=== PATIENT | male | born 1955 | race Caucasian/White ===

== ENCOUNTER 2016-04-14 15:05 | Emergency (ER) | payer MEDICAID | END 2016-04-14 17:42 | disposition home or self-care (01) | LOC: D.ER 15:05 | DX: R51 Headache (principal); I10 Essential (primary) hypertension ==

== ENCOUNTER 2020-06-19 13:12 | Inpatient (IN) | payer MEDICARE ==
[~2020-06-19] VITALS: Ht 175.3 cm; Wt 140.6 kg
--- NOTE | 2020-06-19 13:20 | NUR ---
REPORT FROM EMS TAKEN. EMS STATES PATIENT'S LIVING CONDITIONS SQUALID. PATIENT IS DIRTY, WITH BLACK SUBSTANCE CAKED ON FEET AND TOES. VOMITUS AND URINE SOAKED INTO CLOTHING. CLOTHING REMOVED.
[2020-06-19 13:46] LABS: CALCIUM 9.9 mg/dL (8.5-10.1); CARBON DIOXIDE 26.3 mmol/L (21.0-32.0); CREATININE - SERUM 1.6 mg/dL (0.6-1.3); POTASSIUM - SERUM 4.3 mmol/L (3.5-5.1)
[2020-06-19 13:53] LABS: ALBUMIN 3.3 g/dL (3.4-5.0); BILIRUBIN - TOTAL 0.41 mg/dL (0.2-1.3); PROTEIN - SERUM 7.7 g/dL (6.4-8.2)
--- NOTE | 2020-06-19 13:57 | NUR ---
PATIENT GONE TO CT.
--- NOTE | 2020-06-19 14:05 | NUR ---
BACK TO ROOM .
--- NOTE | 2020-06-19 14:15 | NUR ---
IN AND OUT CATHETER DONE FOR URINE SPECIMEN. 400ML CLEAR YELLOW URINE RETURNED. SPECIMEN TO LAB.
[2020-06-19 14:16] LABS: BASOPHILS 0.3 % (0-2); EOSINOPHILS 1.4 % (0-7); HEMATOCRIT 43.1 % (42.0-54.0); HEMOGLOBIN 13.9 g/dL (13.5-17.5); IMMATURE GRANULOCYTES 0.2 % (0-5); LYMPHOCYTE ABS# 4.22 10x3/uL (1.32-3.57); MCH 28.7 pg (26.0-34.0); MCHC 32.3 g/dL (31.0-37.0); MCV 88.9 fL (80.0-100.0); MEAN PLATELET VOLUME 11.3 fL (7.4-10.4); MONOCYTES 6.2 % (2-11); NEUTROPHIL ABS# 7.17 10x3/uL (1.78-5.38); NEUTROPHILS 57.9 % (40-80); PLATELET COUNT 219 10x3/uL (130-400); RBC 4.85 10x6/uL (4.20-6.10); RDW 14.4 % (11.5-14.5); WBC 12.4 10x3/uL (4.8-10.8)
[2020-06-19 14:32] LABS: UDS - AMPHET NEGATIVE QUAL (NEGATIVE); UDS - BARB NEGATIVE QUAL (NEGATIVE); UDS - BENZO NEGATIVE QUAL (NEGATIVE); UDS - COCAINE NEGATIVE QUAL (NEGATIVE); UDS - OPIATE NEGATIVE QUAL (NEGATIVE); UDS - PCP NEGATIVE QUAL (NEGATIVE); UDS - THC NEGATIVE QUAL (NEGATIVE)
[2020-06-19 14:48] LABS: BILIRUBIN NEGATIVE (NEGATIVE); KETONE SMALL mg/dL (NEGATIVE); NITRITE NEGATIVE (NEGATIVE); UROBILINOGEN NORMAL mg/dL (< 2)
[2020-06-19 14:51] LABS: WHITE CELLS - URINE 0-5 HPF (0-1)
[2020-06-19 14:52] LABS: AMORPHOUS SEDIMENT <1+ LPF (NONE SEEN); BACTERIA FEW HPF (NONE SEEN); SQUAMOUS EPITHELIAL NONE SEEN HPF (0-4)
--- NOTE | 2020-06-19 15:00 | NUR ---
PATIENT REMAINS CONFUSED BUT MORE ALERT THAN AT ADMISSION. REPEATS SAME PHRASES OVER AND OVER. "I WANT TO GO HOME", "I'M NOT SICK", "TAKE ME HOME" .
[2020-06-19 16:06] LABS: CKMB 1.2 U/L (0.0-3.6); CREATINE KINASE 144 UL (21-232)
[2020-06-19 16:07] LABS: TROPONIN-I < 0.017 ng/mL (0.000-0.060)
--- NOTE | 2020-06-19 16:45 | NUR ---
BATH GIVEN. CAKED FEET SOAKED WITH WET WASHCLOTHES AND SCRUBED. SOME MATERIAL REMAINS CAKED UNDER TOE AND FINGERNAILS. PATIENT REMAINS CONFUSED. REPEATEDLY SAYS "I WANT TO GO HOME", "I'M NOT SICK", "TAKE ME HOME". REORIENTED EACH TIME WITH PLACE AND CIRCUMSTANCE. PATIENT IS UNABLE TO REPEAT BACK THIS INFORMATION.
--- NOTE | 2020-06-19 17:05 | NUR ---
EMS RETURNS TO VISIT. REPORT THAT APS HAS BEEN NOTIFIED OF PATIENT'S LIVING CONDITIONS AND PHYSICAL STATE. CASE #[id number]. PATIENT UP TO BEDSIDE CHAIR TO LESSEN AGITATION. PATIENT REPEATING "I'VE GOT TO GET UP" "PLEASE LET ME UP" THROUGHOUT BATH. LINENS CHANGED.
--- NOTE | 2020-06-19 17:55 | NUR ---
PATIENT REMAINS UP IN CHAIR. CONFUSED BUT COOPERATIVE.
--- NOTE | 2020-06-19 18:19 | NUR ---
REPORT CALLED TO MARIANN PINON, MED/SURG.
--- NOTE | 2020-06-19 19:06 | NUR ---
RECEIVED FROM ER PER WHEEL CHAIR AMBULATED TO BED. PATIENT STATES IS AT [facility], THINKS HE HAS BEEN TAKEN FROM [email or web address]. REORIENTATED TO PLACE. TELEMETRY APPLIED SR RATE OF 67. OXYGEN AT 2 LITERS PER NC. CAITLIN ALARM ON BED. NO DISTRESS. REPEAT SAME STATEMENTS OVER AND OVER AGAIN. SKIN WARM AND DRY. IV LEFT AC INFUSING WITH NS PLACED ON PUMP AT 75 ML HOUR. HEAD OF BED ELEVATED 30 DEGREES.
[2020-06-19 20:00] VITALS: BP 133/62
[2020-06-19 20:59] LABS: ANION GAP 13.7 mmol/L (8-16); BILIRUBIN - TOTAL 0.29 mg/dL (0.2-1.3); CARBON DIOXIDE 27.7 mmol/L (21.0-32.0); CREATININE - SERUM 1.4 mg/dL (0.6-1.3); POTASSIUM - SERUM 4.4 mmol/L (3.5-5.1); PROTEIN - SERUM 7.3 g/dL (6.4-8.2)
[2020-06-20 01:01] VITALS: BP 133/62; BMI 45.9
--- NOTE | 2020-06-20 01:52 | NUR ---
ASSESSED AT THE BEGINNING OF THE SHIFT. PT IS CONFUSED AND HAS TROUBLE STALYING STILL . HE HAS PULLED HIS IV OUT AND WILL NOT KEEP HIS O2 ON. HIS TELEMETRY IS OFF ALMOST BEFORE WE GET IT ON. WHEN DOING HIS NEURO CHECKS WE FIND HIS PUPLIS STAY AT 3 AND DO NOT GET ANY SMALLER WHEN LIGHT IS PUT IN HIS EYES. WHEN HE PULLED OUT HIS IV WE PLACED A NEW ONE IN THE LEFT HAND WHICH WAS HARD BECAUSE HE WAS NOT COOPERATING. AFTER IT WAS SECURE HE TOLD US HE WAS A PATIENT AND WE COULD NOT DO THAT. HE REPEATEDLY ASKED US TO CALL THE POLICE SO HE COULD REPORT US. THE MD WAS CALLED AND MAYITO CLARKE GAVE ORDERS FOR BENADRYL TO HELP HIM SLEEP. HE HAS BEEN LIGHTLY SLEEPING BUT IF WE TRY TO PUT HIS O2 ON HE WAKES AND TELLS US TO CALL THE POLICE.
[2020-06-20 04:00] VITALS: BP 147/67
--- NOTE | 2020-06-20 06:39 | NUR ---
PT HAS BEEN OFF TELEMETRY MOST OF THE NIGHT. HE DOSENT KEEP IT ON VERYLONG AT ALL BEFORE IT IS OFF.
[2020-06-20 07:00] LABS: BASOPHILS 0.4 % (0-2); EOSINOPHILS 1.8 % (0-7); HEMATOCRIT 39.7 % (42.0-54.0); HEMOGLOBIN 12.7 g/dL (13.5-17.5); IMMATURE GRANULOCYTES 0.1 % (0-5); LYMPHOCYTE ABS# 3.04 10x3/uL (1.32-3.57); LYMPHOCYTES 32.2 % (15-50); MCH 28.5 pg (26.0-34.0); MEAN PLATELET VOLUME 10.9 fL (7.4-10.4); MONOCYTES 8.6 % (2-11); NEUTROPHIL ABS# 5.38 10x3/uL (1.78-5.38); NEUTROPHILS 56.9 % (40-80); PLATELET COUNT 204 10x3/uL (130-400); RBC 4.46 10x6/uL (4.20-6.10); RDW 14.5 % (11.5-14.5); WBC 9.5 10x3/uL (4.8-10.8)
--- NOTE | 2020-06-20 07:00 | NUR ---
0700 BEDSIDE REPORT RECEIVED AWAKE ALERT CONFUSED PULLED TELEMETRY OFF AND RN REPLACED WITH INSTRUCTIONS NOT TO TAKE OFF IV INFUSING WITH D5 1/2 AT 75 TO L HAND SITE
[2020-06-20 07:18] LABS: INR 1.16 (0.85-1.17); PROTIME 13.7 SECONDS (11.6-15.0)
[2020-06-20 07:37] LABS: ALBUMIN 2.9 g/dL (3.4-5.0); ANION GAP 12.6 mmol/L (8-16); BILIRUBIN - TOTAL 0.29 mg/dL (0.2-1.3); CALCIUM 8.8 mg/dL (8.5-10.1); CARBON DIOXIDE 28.3 mmol/L (21.0-32.0); CHOL - HDL RATIO 5.2 ratio (2.3-4.9); CREATININE - SERUM 1.3 mg/dL (0.6-1.3); LDL-HDL RATIO 3.6 ratio (1.5-3.5); MAGNESIUM - SERUM 2.1 mg/dL (1.8-2.4); PHOSPHOROUS 3.3 mg/dL (2.5-4.9); POTASSIUM - SERUM 3.9 mmol/L (3.5-5.1); PROTEIN - SERUM 6.9 g/dL (6.4-8.2); T4 THYROXIN - FREE 1.12 ng/dL (0.76-1.46); THYROID STIMULATING HORMONE 0.6 uIU/mL (0.36-3.74)
[2020-06-20 10:18] VITALS: BP 146/63
--- NOTE | 2020-06-20 11:35 | NUR ---
REHAB PRESCREEN ORDER RECEIVED. AT THIS TIME, HIS SPEECH THERAPY AND PHYSICAL THERAPY CONSULTS ARE PENDING. I WILL LOOK BACK IN HIS CHART LATER TO COMPLETE THE CHART REVIEW TO SEE IF HE MEETS INPATIENT CRITERIA. THANK YOU FOR THIS REFERRAL. BARBARA JONES RN CLINICAL LIAISON, INPATIENT REHAB.
[2020-06-20] MEDS ORDERED: LIPITOR20 MG PO (12:28)
[2020-06-20] MEDS ORDERED: NORVASC10 MG (12:28)
[2020-06-20] MEDS ORDERED: HYDROCHLOROTH12.5 M1 PO (12:30)
[2020-06-20] MEDS ORDERED: IBUPROFEN800 MG PO (12:30)
[2020-06-20] MEDS ORDERED: BAYER CHEWABLE81 MG PO (12:31)
[2020-06-20] MEDS ORDERED: LIPITOR40 MG PO (12:33)
[2020-06-20] MEDS ORDERED: NORVASC10 MG PO (12:35)
[2020-06-20 13:05] VITALS: BP 172/76
[2020-06-20 13:26] VITALS: Ht 175.3 cm; Wt 140.6 kg
--- NOTE | 2020-06-20 13:46 | NUR ---
CHART REVIEW COMPLETED. SPEECH THERAPY SIGNED OFF ON THE PATIENT AT TIME OF EVALUATON. HE WAS STAND BY ASSIST WITH PHYSICAL THERAPY. HE WALKED 50 FEET, BUT HIS SATS DID DROP LOW 80% BUT RETUNED TO 96% WHEN SITTING. I HAVE SPOKE WITH ANA CH RN CASE MANAGER AND SHE WILL ORDER AN OCCUPATIONAL THERAPY EVALUATION AND I WILL REVIEW IT. AT THIS TIME I AM NOT SEEING THAT THE PATIENT IS NEEDING 3 HOURS OF INTENSIVE THERAPY. I WILL CONTINUE TO FOLLOW. BARBARA JONES RN CLINICAL LIAISON, INPATIENT REHAB.
[2020-06-20 17:31] VITALS: BP 179/65
--- NOTE | 2020-06-20 19:02 | NUR ---
1600 PT INCOTINENT IN BED OCCASSIONALLY UTILIZES URINAL INSTRUCTED PT ON CLEAN CATCH
[2020-06-20 21:01] VITALS: BP 152/56
[2020-06-21 01:18] VITALS: BP 112/49
[2020-06-21 06:21] VITALS: BP 111/40
--- NOTE | 2020-06-21 06:34 | NUR ---
ASSESSED AT THE BEGINNING OF THE SHIFT. PT IS ALERT AND CONFUSED. HE IS ABLE TO VERBALIZE HIS NEEDS. HE IS INCONT OF URINE AND STOOL. WE HAVE ASKED FOR A URINE SAMPLE AND HE STATES HE HAS TRIED BUT CANT WAIT FOR THE URINAL. WE ASKED IF WE COULD DO AN IN AND OUT CATH AND HE REFUSED. WE HAVE BEEN CHECKING ON HIM DURING THE NIGHT TO MAKE SURE HE IS DRY AND TURNED. HE TURNS HIMSELF FREQUENTLY. TELEMETRY IS IN PLACE AND SHOWS A SR AT 82, O2 IS AT 2 LITERS AND HE IS FREQUENTLY PANTING AT A RAPID RATE IN THE 30'S.
[2020-06-21 06:47] LABS: BASOPHILS 0.4 % (0-2); EOSINOPHILS 0.2 % (0-7); HEMATOCRIT 39.8 % (42.0-54.0); HEMOGLOBIN 12.7 g/dL (13.5-17.5); IMMATURE GRANULOCYTES 0.2 % (0-5); LYMPHOCYTE ABS# 3.95 10x3/uL (1.32-3.57); LYMPHOCYTES 21.6 % (15-50); MCH 28.5 pg (26.0-34.0); MCHC 31.9 g/dL (31.0-37.0); MCV 89.4 fL (80.0-100.0); MEAN PLATELET VOLUME 11.1 fL (7.4-10.4); MONOCYTES 9.1 % (2-11); NEUTROPHILS 68.5 % (40-80); PLATELET COUNT 211 10x3/uL (130-400); RBC 4.45 10x6/uL (4.20-6.10); RDW 14.6 % (11.5-14.5)
[2020-06-21 06:59] LABS: WBC 18.3 10x3/uL (4.8-10.8)
[2020-06-21 07:25] LABS: ALBUMIN 2.8 g/dL (3.4-5.0); ANION GAP 14.9 mmol/L (8-16); BILIRUBIN - TOTAL 0.69 mg/dL (0.2-1.3); CALCIUM 8.4 mg/dL (8.5-10.1); CARBON DIOXIDE 27.8 mmol/L (21.0-32.0); MAGNESIUM - SERUM 1.8 mg/dL (1.8-2.4); POTASSIUM - SERUM 3.7 mmol/L (3.5-5.1); PROTEIN - SERUM 7.1 g/dL (6.4-8.2)
[2020-06-21 07:26] LABS: CREATININE - SERUM 2.2 mg/dL (0.6-1.3); PHOSPHOROUS 4.3 mg/dL (2.5-4.9)
[2020-06-21 09:11] VITALS: BP 108/46
--- NOTE | 2020-06-21 11:10 | NUR ---
PT REFUSES TO HAVE CARPIO PLACE, DISCUSSED WITH CHARGE NURSE
--- NOTE | 2020-06-21 11:33 | NUR ---
RESTING IN BED, NO DISTRESS NOTED, IV INFUSING PER L WRIST, CONT TO MONITOR TEMPS, REFUSING CARPIO
--- NOTE | 2020-06-21 12:26 | NUR ---
CONT TO REFUSE CARPIO OR IN AND OUT CATH, SHAD AWARE
[2020-06-21 13:20] VITALS: BP 95/54
[2020-06-21 13:33] LABS: CHOL - HDL RATIO 4.7 ratio (2.3-4.9); LDL-HDL RATIO 3.3 ratio (1.5-3.5)
--- NOTE | 2020-06-21 14:35 | NUR ---
INCONT URINE, CONDOM CATH PLACED, CONT TO MONITOR
[2020-06-21 18:27] VITALS: BP 120/41
[2020-06-21 22:08] VITALS: BP 113/51
--- NOTE | 2020-06-22 | NUR ---
A&O IN ROOM. INCONTINENT VOID. UNABLE TO STAND, REPORTS LEFT KNEE WEAKNESS. BREATHING REMAINS LABORED WITH RESPIRATIONS @ 27 AFTER LAYING BACK DOWN. RT NOTIFIED. ENCOURAGED PT TO RECONSIDER CARPIO PLACEMENT. PT CONTINUES REFUSAL. ALSO REFUSING BREATHING TX. SPO2 92% ON 4L. PT IS A MOUTHBREATHER AND NOT TOLERATING NC TO HIS MOUTH. CTM CLOSELY.
--- NOTE | 2020-06-22 03:55 | NUR ---
I have reviewed this patient and I concur with the Shift Assessment completed by the Licensed Practical Nurse today this shift.
[2020-06-22 05:54] VITALS: BP 101/55
[2020-06-22 06:22] LABS: BASOPHILS 0.2 % (0-2); EOSINOPHILS 0.5 % (0-7); HEMATOCRIT 37.8 % (42.0-54.0); HEMOGLOBIN 12.1 g/dL (13.5-17.5); IMMATURE GRANULOCYTES 0.3 % (0-5); LYMPHOCYTES 19.7 % (15-50); MCH 28.6 pg (26.0-34.0); MCV 89.4 fL (80.0-100.0); MEAN PLATELET VOLUME 11.3 fL (7.4-10.4); NEUTROPHIL ABS# 13.21 10x3/uL (1.78-5.38); NEUTROPHILS 70.3 % (40-80); PLATELET COUNT 190 10x3/uL (130-400); RBC 4.23 10x6/uL (4.20-6.10); RDW 14.7 % (11.5-14.5); WBC 18.8 10x3/uL (4.8-10.8)
[2020-06-22 07:39] LABS: ALBUMIN 2.7 g/dL (3.4-5.0); ANION GAP 14.8 mmol/L (8-16); BILIRUBIN - TOTAL 0.45 mg/dL (0.2-1.3); CALCIUM 7.7 mg/dL (8.5-10.1); CREATININE - SERUM 2.1 mg/dL (0.6-1.3); MAGNESIUM - SERUM 1.7 mg/dL (1.8-2.4); PHOSPHOROUS 4.3 mg/dL (2.5-4.9); POTASSIUM - SERUM 3.8 mmol/L (3.5-5.1); PROTEIN - SERUM 6.3 g/dL (6.4-8.2)
--- NOTE | 2020-06-22 07:42 | NUR ---
resting in bed, no distress noted, iv infusing, tele in place, o2 per nc, cont to monitor
[2020-06-22 09:42] VITALS: BP 124/59
--- NOTE | 2020-06-22 10:10 | NUR ---
CALL PLACE TO [facility], PT HAS NOT HAD MEDS FILLED SINCE OCT 2019, CALL PLACE TO ERE ALBERTO WHO PT SAID IS HIS POA AND SHE IS NOT FAMILIAR WITH HIS MEDS
[2020-06-22 14:35] VITALS: BP 124/62
[2020-06-22 18:35] VITALS: BP 124/60
[2020-06-22 20:00] VITALS: BP 127/55
[2020-06-23] VITALS: BP 110/54
--- NOTE | 2020-06-23 00:56 | NUR ---
I have reviewed this patient and I concur with the Shift Assessment completed by the Licensed Practical Nurse today this shift.
[2020-06-23 04:00] VITALS: BP 121/58
--- NOTE | 2020-06-23 05:00 | NUR ---
KERLEX WRAP OVER IV IN LEFT HAND APPEARS SATURATED. REMOVED. HAND APPEARS REDDENED AND SWOLLEN. PT REPORTS IT HAS BEEN TENDER FOR A WHILE. INFORMED PT A NEW ONE WAS NECESSARY. PT STATED HE WAS FINE AND HE DIDN'T NEED A NEW ONE, HE'D KEEP CURRENT IV. EXPLAINED HOW IT IS NO LONGER PATENT AND HE ISN'T GETTING FULL BENEFITS OF MEDICATION WITH CURRENT IV. ALSO INFORMED PT I RECEIVED AN ORDER FOR IV PAIN MEDICATION FROM MAYITO SANDOVAL, AND IT MAY NOT WORK IF NEW IV IS NOT PLACED. PT RELUCTANT, BUT AGREED. 20G IV SITED TO RIGHT UPPER ARM, BLOOD RETURN NOTED, FLUSHES WITH EASE, PATENT. PT TOLERATED WELL. I THEN ADMINISTERED PRN IV MEDICATION AND PT REPORTED IMMEDIATE PAIN RELIEF TO LEFT KNEE. CPOC.
[2020-06-23 05:59] LABS: BASOPHILS 0.4 % (0-2); HEMATOCRIT 37.9 % (42.0-54.0); HEMOGLOBIN 11.8 g/dL (13.5-17.5); IMMATURE GRANULOCYTES 0.2 % (0-5); LYMPHOCYTE ABS# 2.43 10x3/uL (1.32-3.57); LYMPHOCYTES 23.6 % (15-50); MCHC 31.1 g/dL (31.0-37.0); MEAN PLATELET VOLUME 11.3 fL (7.4-10.4); MONOCYTES 9.3 % (2-11); NEUTROPHIL ABS# 6.54 10x3/uL (1.78-5.38); NEUTROPHILS 63.5 % (40-80); PLATELET COUNT 199 10x3/uL (130-400); RBC 4.21 10x6/uL (4.20-6.10); RDW 14.6 % (11.5-14.5)
[2020-06-23 06:16] LABS: ALBUMIN 2.5 g/dL (3.4-5.0); ANION GAP 8.1 mmol/L (8-16); BILIRUBIN - TOTAL 0.3 mg/dL (0.2-1.3); CALCIUM 8.2 mg/dL (8.5-10.1); CARBON DIOXIDE 29.7 mmol/L (21.0-32.0); CREATININE - SERUM 1.9 mg/dL (0.6-1.3); MAGNESIUM - SERUM 1.7 mg/dL (1.8-2.4); PHOSPHOROUS 3.7 mg/dL (2.5-4.9); POTASSIUM - SERUM 3.8 mmol/L (3.5-5.1); PROTEIN - SERUM 7.1 g/dL (6.4-8.2)
[2020-06-23 06:19] LABS: WBC 10.3 10x3/uL (4.8-10.8)
--- NOTE | 2020-06-23 07:36 | NUR ---
RECIEVED BEDSIDE REPORT. IN BED SLEEPING, FREE FROM SIGNS OF DISTRESS. CONFUSED. BED LOW POSITION, CALL LIGHT IN REACH. WILL CONTINUE TO MONITOR.
[2020-06-23 08:00] VITALS: BP 123/65
--- NOTE | 2020-06-23 15:59 | NUR ---
THANK YOU FOR THIS REFERRAL. VISITED WITH MR. FRAZIER. HAS VERY LIMITED INSIGHT REGARDING HIS CURRENT PHYSICAL LIMITATIONS AND POOR SAFETY AWARENESS. HE REPEATEDLY REFUSED INPATIENT REHABILITATION SERVICES AND WAS FOCUSED ON GOING HOME. HE CONTINUALLY ASKED THIS SN IF HE COULD "GO HOME NOW". REPORTED PATIENT'S REFUSAL OF REHAB TO SANDRA Wilson, BOILERMAKER MECHANIC.- TAYLOR CORREA LPN CLINICAL LIAISON
--- NOTE | 2020-06-23 19:15 | NUR ---
RECIEVED PHONE CALL FROM VERY UPSET NEIGHBOR, SAYING HER NAME WAS AMINA. SHE WAS ANGRY THAT WE HAD GIVEN INFORMATION TO REE, WHO HAD THE SECURITY CALL IN CODE. SHE SAID THAT IT WAS BREAKING HIPPA BECAUSE THE REE PERSON WAS NOT FAMILY. WHEN TOLD THAT IT DID NOT MATTER IF THE PERSON WITH THE CALL IN CODE WAS FAMILY OR NOT SHE SAID THAT SHE WAS GOING TO WRITE US UP. SHE THEN PROCEDED TO CUSS ME OUT ON THE PHONE, WHEN TOLD THAT I WOULD NOT TALK TO HER WHEN SHE WAS YELLING, SHE YELLED MORE CUSS WORDS AND HUNG UP. CALLED WORKFORCE DEVELOPMENT ASSISTANT TO MAKE AWARE OF THE SITUATION.
--- NOTE | 2020-06-23 19:22 | NUR ---
PATIENT RESTING IN BED WITH NO S/S OF DISTRESS AND DENIES NEEDS AT THIS TIME. BED IN LOWEST POSITION AND CALL LIGHT IN REACH. ENCOURAGED PATIENT TO CALL WITH NEEDS.
[2020-06-23 20:00] VITALS: BP 130/57
--- NOTE | 2020-06-23 20:23 | NUR ---
ADMINISTERED MEDS PER ORDERS. PATIENT DENIES OTHER NEEDS AT THIS TIME. ENCOURAGED PATIENT TO CALL WITH NEEDS.
[2020-06-24 04:00] VITALS: BP 139/61
[2020-06-24 05:24] LABS: BASOPHILS 0.8 % (0-2); EOSINOPHILS 4.3 % (0-7); HEMATOCRIT 35.4 % (42.0-54.0); HEMOGLOBIN 11.6 g/dL (13.5-17.5); LYMPHOCYTES 27.3 % (15-50); MCH 28.4 pg (26.0-34.0); MCHC 32.7 g/dL (31.0-37.0); MEAN PLATELET VOLUME 8.7 fL (7.4-10.4); NEUTROPHILS 56.6 % (40-80); PLATELET COUNT 215 10x3/uL (130-400); RBC 4.07 10x6/uL (4.20-6.10); RDW 14.2 % (11.5-14.5); WBC 8.2 10x3/uL (4.8-10.8)
[2020-06-24 05:34] LABS: MCV 86.9 fL (80.0-100.0)
[2020-06-24 06:13] LABS: ALBUMIN 2.4 g/dL (3.4-5.0); ANION GAP 11.8 mmol/L (8-16); BILIRUBIN - TOTAL 0.23 mg/dL (0.2-1.3); CALCIUM 8.7 mg/dL (8.5-10.1); CARBON DIOXIDE 26.8 mmol/L (21.0-32.0); CREATININE - SERUM 1.5 mg/dL (0.6-1.3); MAGNESIUM - SERUM 1.9 mg/dL (1.8-2.4); PHOSPHOROUS 3.1 mg/dL (2.5-4.9); PROTEIN - SERUM 6.8 g/dL (6.4-8.2)
[2020-06-24 06:14] LABS: POTASSIUM - SERUM 4.6 mmol/L (3.5-5.1)
--- NOTE | 2020-06-24 07:35 | NUR ---
ALERT AND ORIENTED TO SELF AND PLACE. ASSESSMENT COMPLETE. DENIES NEEDS. BED LOW. CALL CHAVES AND PERSONAL ITEMS IN REACH. WILL CONTINUE TO MONITOR.
[2020-06-24 10:12] VITALS: BP 115/53
--- NOTE | 2020-06-24 10:36 | NUR ---
SPOKE WITH LORI TAM ABOUT PT CONTINUALLY C/O LEFT KNEE PAIN. NO IMAGING APPEARS TO HAVE BEEN DONE OF LEFT KNEE. EXPRESSIVE ART THERAPIST MADE AWARE. STATES WILL ORDER XRAY. PATIENT REFUSES MORPHINE.
--- NOTE | 2020-06-24 10:40 | NUR ---
SPOKE WITH PATIENT IN ROOM WHO STATES SOMETIMES GETS CORTISONE SHOTS IN KNEE AND "THEY HELP A LOT." PATIENT STATES HAS ARTHRITIS. NOTIFIED THAT WILL BE GETTING XRAY OF KNEE JUST TO MAKE SURE EVERYTHING OK AND WILL NOTIFY CREAM GATHERER OF ARTHRITIS AND CORTISONE SHOTS.
[2020-06-24 12:29] VITALS: BP 127/88
--- NOTE | 2020-06-24 14:07 | EC ---
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 Ao 151 cm/sec RVOT cm/sec RA cm/sec PA cm/sec AV Gradient Peak 9 mmHg AV Mean 6 mmHg AV Area 2.6 cm MV Gradient Peak 2 mmHg MV Mean 1 mmHg MV Area cm COMMENTS: Material Stress Tester: Marcia RASHID Records Officer: 3 Dr. Rae TAPE# Pericardial Effusion DATE OF SERVICE: Adequate 2D, color flow imaging, spectral Doppler, and M-Mode. LVH is present. LV internal dimensions are normal. EF greater than or equal to 55%. Aortic valve is sclerotic. No evidence of stenosis by Doppler interrogation. Left atrium is dilated at 4.8 cm. Mitral valve shows no prolapse. Trace MR. Right-sided chambers are grossly normal. Mild TR. TRANSINT:[id number] Voice Confirmation ID: [id number] DOCUMENT ID: [id number] ECHOCARDIOGRAM REPORT [id number] JENNIFER FRAZIER DESTINY GOLDBERG MD at 1407 CC: [id number] DICTATION DATE: 06/23/20 1642 SURGICAL SERVICES ASST: 06/23/20 2251 ADM IN [facility] [address] [id number]
--- NOTE | 2020-06-24 16:08 | NUR ---
OT NOTE: PT REQUIRED CGA-MIN A FOR SUPINE TO SIT AT EOB. PT COMPLETED STATIC SITTING BALANCE WITH SPV. PT COMPLETED FACE AND HAND HYGIENE WITH SETUP AT EOB. PT STATED KNEE IS PAINFUL. NOTIFIED NURSING. [id number] MILA DIETZ COTA
--- NOTE | 2020-06-24 16:47 | NUR ---
PATIENT STATES IV TO DIAMANET SORE. REMOVED WITH TIP INTACT. RESITED TO [facility] AFTER ONE ATTTEMPT WITH 22 GAUGE.
[2020-06-24 16:59] VITALS: BP 128/66
[2020-06-24 20:00] VITALS: BP 144/70
--- NOTE | 2020-06-25 03:38 | NUR ---
DURING MED PASS TIME THE PATIENT SAID HE WAS NOT GOING TO TAKE THE DOPE, AND WE WEREN'T HELPING HIM HERE AND HE WAS GOING HOME IN THE MORNING AMD WHEN I WAS TRYING TO EXPLAIN TO HIM WHAT THE MEDICATION WAS AND I WAS JUST TRYING TO HELP HIM GET WELL. I WAS GOING TO GET ANOTHER NURSE TO SEE IF HE WOULD TAKE IT FOR HER WHEN I CAME BACK IN HE WAS ON THE PHONE WITH 911 SAYING TO COME GET HIM THEY ARE TRYING TO DOPE HIM AND THEY ARE NOT HELPING HIM. WE HAD SECURITY COME UP AND HE KEPT CLAIMING WE WERE DOPING HIM. THE RN ADVICE CAME UP AND TALKED TO HIM AND I TOLD HIM IF HE TOOK HIS MEDS I WOULD NOT COME BACK IN AND WAKE HIM UP. HE AGREED AND TOOK HIS MEDICATIONS. HE HAS HAD HIS PAIN MANAGED WITH THE PRESCRIBED PAIN MEDICATION. HE IS CURRENTLY RESTING IN BED WITH HIS EYES CLOSED.
[2020-06-25 04:00] VITALS: BP 162/72
[2020-06-25 06:08] LABS: BASOPHILS 0.8 % (0-2); EOSINOPHILS 5.3 % (0-7); HEMATOCRIT 35.2 % (42.0-54.0); HEMOGLOBIN 11.6 g/dL (13.5-17.5); LYMPHOCYTES 29.7 % (15-50); MCH 28.6 pg (26.0-34.0); MCV 86.6 fL (80.0-100.0); MEAN PLATELET VOLUME 8.8 fL (7.4-10.4); MONOCYTES 11.6 % (2-11); NEUTROPHILS 52.6 % (40-80); PLATELET COUNT 227 10x3/uL (130-400); RBC 4.07 10x6/uL (4.20-6.10)
[2020-06-25 06:34] LABS: ALBUMIN 2.4 g/dL (3.4-5.0); ANION GAP 12.6 mmol/L (8-16); BILIRUBIN - TOTAL 0.21 mg/dL (0.2-1.3); CALCIUM 8.2 mg/dL (8.5-10.1); CARBON DIOXIDE 28.1 mmol/L (21.0-32.0); CREATININE - SERUM 1.4 mg/dL (0.6-1.3); MAGNESIUM - SERUM 1.7 mg/dL (1.8-2.4); PHOSPHOROUS 2.9 mg/dL (2.5-4.9); POTASSIUM - SERUM 4.7 mmol/L (3.5-5.1); PROTEIN - SERUM 6.1 g/dL (6.4-8.2)
--- NOTE | 2020-06-25 07:22 | NUR ---
RECIEVED BEDSIDE REPORT. PATIENT CONFUSED TO TIME, PLACE, AND SITUATION. CAITLIN ALARM ON. BED LOW POSITION, CALL LIGHT IN REACH. FREE FROM SIGNS OF DISTRESS. WILL CONTINUE TO MONTIOR.
[2020-06-25 08:25] VITALS: BP 136/78
[2020-06-25 12:58] VITALS: BP 149/74
--- NOTE | 2020-06-25 15:39 | NUR ---
OT NOTE: PT PERFORMED WELL TODAY. BED MOB WITH MIN ASSIST FOR SIT TO SUPINE AND SUPINE TO SIT.. AMB TO SINK WITH WALKER AND WASHED HANDS.. AMB INTO HALLWAY WITH WALKER AND MIN ASSIST GREATER THAN 50 FT WITH 2 REST BREAKS. MIN ASSIST TO ZIA GOWN.. PT INCONT OF BLADDER.. MIN ASSIST WITH HYGIENE (MOD ASSIST WITH THOROUGH HYGIENE). PT WANTING TO RETURN HOME.. PT MAY BE FUNCTIONING AT PRIOR LEVEL BUT IS NOT REALLY SAFE TO RETURN HOME ALONE. ANA MADDEN, OTR/L [id number]
[2020-06-25 17:47] VITALS: BP 137/75
[2020-06-25 19:57] VITALS: BP 112/70
--- NOTE | 2020-06-26 03:46 | NUR ---
PATIENT HAD PAIN MANAGED WITH THE PRESCRIBED PAIN MEDICATIONS, HE APPEARS TO BE RESTING WELL, HE IS CURRENTLY RESTING IN BED WITH HIS EYES CLOSED.
[2020-06-26 04:00] VITALS: BP 140/71
[2020-06-26 05:58] LABS: BASOPHILS 0.8 % (0-2); EOSINOPHILS 6.1 % (0-7); HEMATOCRIT 35.5 % (42.0-54.0); HEMOGLOBIN 11.5 g/dL (13.5-17.5); LYMPHOCYTES 35.4 % (15-50); MCH 27.9 pg (26.0-34.0); MCHC 32.3 g/dL (31.0-37.0); MCV 86.3 fL (80.0-100.0); MEAN PLATELET VOLUME 8.4 fL (7.4-10.4); MONOCYTES 11.5 % (2-11); NEUTROPHILS 46.2 % (40-80); PLATELET COUNT 251 10x3/uL (130-400); RBC 4.11 10x6/uL (4.20-6.10); RDW 14.3 % (11.5-14.5); WBC 9.1 10x3/uL (4.8-10.8)
[2020-06-26 06:20] LABS: ALBUMIN 2.4 g/dL (3.4-5.0); ANION GAP 9.5 mmol/L (8-16); BILIRUBIN - TOTAL 0.27 mg/dL (0.2-1.3); CALCIUM 8.9 mg/dL (8.5-10.1); CARBON DIOXIDE 29.9 mmol/L (21.0-32.0); CREATININE - SERUM 1.5 mg/dL (0.6-1.3); POTASSIUM - SERUM 4.4 mmol/L (3.5-5.1); PROTEIN - SERUM 6.9 g/dL (6.4-8.2)
[2020-06-26 08:25] VITALS: BP 120/81
--- NOTE | 2020-06-26 10:00 | NUR ---
OFF FLOOR AT THIS TIME TO CT FOR SCAN AT THIS TIME.
--- NOTE | 2020-06-26 11:28 | NUR ---
I have reviewed this patient and I concur with the Shift Assessment completed by the Licensed Practical Nurse today this shift.
--- NOTE | 2020-06-26 12:21 | MORECARE ---
CASE MANAGEMENT DISCHARGE SUMMARY PATIENT: JENNIFER FRAZIER UNIT: [id number] ADM DATE: 06/19/20 AGE: 65 : 53 SEX: M ROOM/BED: D.2226 AUTHOR: MITCHELLDOC PHYSICIAN: REFERRING PHYSICIAN: DESTINY VEGA MD DATE OF SERVICE: 06/26/20 Case Management Discharge Planning Summary DCP REVIEW SUMMARY ANTICIPATED D/C DATE: EXPECTED LOS : CASE STATUS: DCP Initiated INITIAL REVIEW: 06/19/2020 INITIAL REVIEWER: Arlene Parker FINAL DISCHARGE DISPOSITION: : FINAL REVIEWER: FINAL REVIEW DATE: DCP Focus Questions & Answers DCP Screen QUESTION: ANSWER High Risk Factors: : Poor health literacy DCP Evaluation QUESTION: ANSWER Patient's current cognitive status: : *Oriented to person, place, situation, time and present Patient's ability to cope with chronic illness : d. No chronic illness Does the patient have the ability to pay for or attain post discharge needs / services? : Yes Physical Status: : Independent with ADL's Is there a likelihood that the patient will require additional services to return to the preadmission environment? : Yes Living Arrangements: : Home Alone with Support Patient with capacity for self-care or can be cared for in same environment as prior to hospitalization? : Yes Living arrangements comments: : AD[address]ESS [address] PHONE [phone] Baseline cognitive status: : *Oriented to person, place, situation, time and present Comments: : PATIENT REFUSED HOME HEALTH AND REHAB, DECLINATION SIGNED. Pharmacy name(s): : [facility]/PCP DR. LOVELACE Does Patient have transportation to get home and to follow-up medical appointments when discharged from the hospital? : No Would patient like to participate in any Care Coordination programs (if applicable): : Not applicable Does the patient have electricity at home? : Yes Does the patient have running water in their house? : Yes Equipment in use: : Walker - Standard Equipment in use: : Cane - Quad Mental health screen: : No mental health history Resources / Services in place: : Private duty care Contact information for resources in use: : [facility] HOME CARE ONCE PER WEEK Problems identified by the patient regarding discharge: : NEEDS TRANSPORT HOME DCP Re-evaluation QUESTION: ANSWER Would patient like to participate in any Care Coordination programs (if applicable): : Not applicable PATIENT: JENNIFER FRAZIER ENCOUNTER: [id number] MEDICAL RECORD#: [id number] ADMISSION DATE: 06/19/2020 DISCHARGE DATE: ATTENDING MD: ROSHAN: AGE: 65 MARITAL STATUS: S DC PLAN ID: [id number] FACILITY: [facility] PRINTED ON: 06/26/20 12:21 CT All edits/amendments must be made on the electronic document DICTATION DATE: 06/26/201219 CIGARETTE AND FILTER CHIEF INSPECTOR: PATRICK 06/26/201219 RPT#: [id number] DC DATE: STATUS: ADM IN [facility] [address] [place] [address] END OF REPORT
--- NOTE | 2020-06-26 12:32 | MORECARE ---
CASE MANAGEMENT DISCHARGE SUMMARY PATIENT: JENNIFER FRAZIER UNIT: [id number] ADM DATE: 06/19/20 AGE: 65 : 53 SEX: M ROOM/BED: D.2226 AUTHOR: MITCHELL,DOC PHYSICIAN: REFERRING PHYSICIAN: DESTINY VEGA MD DATE OF SERVICE: 06/26/20 Case Management Discharge Planning Summary COMMENTS ENTERED DATE: 06/26/20 12:17 CT COMMENT TYPE: Discharge Planning REVIEWER: Arlene Parker CM met with patient about dc planning needs. Patient plans to dc to home where he lives alone. States Home care comes out weekly and he has a cane and walker at home. States his pcp is Dr. Samuel and uses [facility]. He states he will need transportation home when discharged. Spoke with patient about home health , rehab and equipment. Patient refuses HH and rehab, declination signed. IMM signed and placed on chart. We will get him a taxi home at discharge. I have received a voice mail from [facility] concerning this patient. I have left Meka at [facility] several messages, waiting call back. CM to follow and assist as needed. Appended by Arlene Parker on 06/26/2020 12:26 CDT: Walk test has been ordered. If walk test failed I will send oxygen order to [facility] [place] and patient is agreeable to this. DCP REVIEW SUMMARY ANTICIPATED D/C DATE: EXPECTED LOS : CASE STATUS: DCP Initiated INITIAL REVIEW: 06/19/2020 INITIAL REVIEWER: Arlene Parker FINAL DISCHARGE DISPOSITION: : FINAL REVIEWER: FINAL REVIEW DATE: DCP Focus Questions & Answers DCP Screen QUESTION: ANSWER High Risk Factors: : Poor health literacy DCP Evaluation QUESTION: ANSWER Patient's current cognitive status: : *Oriented to person, place, situation, time and present Patient's ability to cope with chronic illness : d. No chronic illness Does the patient have the ability to pay for or attain post discharge needs / services? : Yes Physical Status: : Independent with ADL's Is there a likelihood that the patient will require additional services to return to the preadmission environment? : Yes Living Arrangements: : Home Alone with Support Patient with capacity for self-care or can be cared for in same environment as prior to hospitalization? : Yes Living arrangements comments: : AD[address]ESS [address] PHONE [phone] Baseline cognitive status: : *Oriented to person, place, situation, time and present Comments: : PATIENT REFUSED HOME HEALTH AND REHAB, DECLINATION SIGNED. Pharmacy name(s): : [facility]/PCP DR. SAMUEL Does Patient have transportation to get home and to follow-up medical appointments when discharged from the hospital? : No Would patient like to participate in any Care Coordination programs (if applicable): : Not applicable Does the patient have electricity at home? : Yes Does the patient have running water in their house? : Yes Equipment in use: : Walker - Standard Equipment in use: : Cane - Bango Mental health screen: : No mental health history Resources / Services in place: : Private duty care Contact information for resources in use: : [facility] HOME CARE ONCE PER WEEK Problems identified by the patient regarding discharge: : NEEDS TRANSPORT HOME DCP Re-evaluation QUESTION: ANSWER Would patient like to participate in any Care Coordination programs (if applicable): : Not applicable PATIENT: JENNIFER FRAZIER ENCOUNTER: [id number] MEDICAL RECORD#: [id number] ADMISSION DATE: 06/19/2020 DISCHARGE DATE: ATTENDING MD: ROSHAN: AGE: 65 MARITAL STATUS: S DC PLAN ID: [id number] FACILITY: [facility] PRINTED ON: 06/26/20 12:32 CT All edits/amendments must be made on the electronic document DICTATION DATE: 06/26/20 123 COMPUTER PROGRAMMING PROFESSOR: PATRICK 06/26/20 123 RPT#: [id number] DC DATE: STATUS: ADM IN [facility] [address] [place] [address] END OF REPORT
[2020-06-26 13:01] VITALS: BP 176/79
[2020-06-26] MEDS ORDERED: TESSALON PERLE100 MG PO (14:13)
[2020-06-26] MEDS ORDERED: MUCINEX600 MG PO (14:13)
[2020-06-26] MEDS ORDERED: VIBRAMYCIN 100100 MG PO (14:14)
[2020-06-26] MEDS ORDERED: OMNICEF300 MG PO (14:14)
[2020-06-26] MEDS ORDERED: PROAIR HFA8.5 G1 INH (14:15)
--- NOTE | 2020-06-26 16:06 | NUR ---
OT NOTE: PT DOING WELL; BED MOB WITH MIN ASSIST; SIT TO STAND AND AMB TO SINK WTIH MIN ASSIST AND RW.. PT STATES THAT HE GETS TO GO HOME TODAY AND WHOMEVER TAKES HIM HOME WILL HAVE TO STOP AND GET HIM AN AIR CONDITIONER. FEEDING WITH SET UP ANA MADDEN OTR/L
--- NOTE | 2020-06-26 17:01 | NUR ---
DC HOME AT THIS TIME STABLE CONDITION. NO C/O NOTED. IV DC AT THIS TIME. TOOK ALL PERSONAL BELONGING WITH HIM.
== END 2020-06-26 17:02 | disposition home or self-care (01) | DRG 682 ==
LOC: D.ER 13:12 → D.MS 16:36
PROVIDERS: Family Medicine; Family Medicine Adult Medicine; ADMIT Family Medicine; ATTEND Family Medicine
DX: N17.9 Acute kidney failure, unspecified (principal); G93.41 Metabolic encephalopathy; J18.9 Pneumonia, unspecified organism; I50.31 Acute diastolic (congestive) heart failure; J44.1 Chronic obstructive pulmonary disease with (acute) exacerbation; J44.0 Chronic obstructive pulmonary disease with (acute) lower respiratory infection; Z68.42 Body mass index [BMI] 45.0-49.9, adult; E86.0 Dehydration; I11.0 Hypertensive heart disease with heart failure; E78.5 Hyperlipidemia, unspecified; E66.01 Morbid (severe) obesity due to excess calories; M17.10 Unilateral primary osteoarthritis, unspecified knee